=== PATIENT | male | born 1965 | race Two or more races ===

== ENCOUNTER → 2018-10-24 | Outpatient (REF) | payer BC | LOC: M SFHCLERA 19:54 | PROVIDERS: ATTEND Nurse Practitioner Family | DX: R53.81 Other malaise (principal) ==

== ENCOUNTER 2020-06-12 11:03 | Day surgery (SDC) | payer BC ==
[~2020-06-12] VITALS: Ht 170.2 cm; Wt 94.3 kg
[~2020-06-12 11:03] MED LIST: ALLO100T PO; ATEN50TA2 PO; LISI10TA22 PO; MELO15TA28 PO; NS 1,000 ML IV ONE; VITMTA PO
--- NOTE | 2020-06-12 12:17 | ROOR ---
Patient Name: Eliazar Heller Procedure Date: 06/12/2020 11:51 AM Date of : 1965 Age: 54 Room: [facility] Gender: Male Note Status: Finalized Procedure: Colonoscopy Indications: High risk colon cancer surveillance: Personal history of colonic polyps Providers: Lee GRANGER MD Referring MD: Teresa MIR MD Requesting Provider: Medicines: Monitored Anesthesia Care Complications: No immediate complications. Procedure: Pre-Anesthesia Assessment: - The heart rate, respiratory rate, oxygen saturations, blood pressure, adequacy of pulmonary ventilation, and response to care were monitored throughout the procedure. The Colonoscope was introduced through the anus and advanced to the terminal ileum, with identification of the appendiceal orifice and IC valve. The colonoscopy was performed without difficulty. The patient tolerated the procedure well. The quality of the bowel preparation was good. Findings: The perianal and digital rectal examinations were normal. Two sessile polyps were found in the sigmoid colon and transverse colon. The polyps were diminutive in size. These polyps were removed with a cold snare. Resection and retrieval were complete. Mild sigmoid diverticulosis and small internal hemorrhoids. The exam was otherwise without abnormality on direct and retroflexion views. Impression: - Two diminutive polyps in the sigmoid colon and in the transverse colon, removed with a cold snare. Resected and retrieved. - Mild sigmoid diverticulosis and small internal hemorrhoids. - The examination was otherwise normal on direct and retroflexion views. Recommendation: - Repeat colonoscopy in 5 years for surveillance. Procedure Code(s): --- Professional --- 90496, Colonoscopy, flexible; with removal of tumor(s), polyp(s), or other lesion(s) by snare technique Diagnosis Code(s): --- Professional --- K63.5, Polyp of colon Z86.010, Personal history of colonic polyps CPT copyright 2019 [employer]. All rights reserved. The codes documented in this report are preliminary and upon optimization specialist review may be revised to meet current compliance requirements. Lee Granger MD Lee GRANGER MD 06/12/2020 12:16:44 PM Electronically signed by Lee GRANGER MD Number of Addenda: 0 Note Initiated On: 06/12/2020 11:51 AM Estimated Blood Loss: Estimated blood loss: none.
[2020-06-12 12:52] VITALS: BP 162/95
== END 2020-06-12 12:51 | disposition home or self-care (01) ==
LOC: M OPP 11:03
PROVIDERS: ATTEND Internal Medicine Gastroenterology
DX: Z12.11 Encounter for screening for malignant neoplasm of colon (principal); Z86.010 Personal history of colon polyps; K63.5 Polyp of colon; K57.30 Diverticulosis of large intestine without perforation or abscess without bleeding; K64.8 Other hemorrhoids; Z79.899 Other long term (current) drug therapy; Z91.010 Allergy to peanuts; Z91.013 Allergy to seafood